=== PATIENT | male | born 1940 | race Caucasian/White ===

== ENCOUNTER → 2019-11-25 | Outpatient (CLI) | payer OTHER ==
[~2019-11-25] MED LIST: BUMETANIDE 1 MG1 M1 PO; BUPROPION HCL100 MG PO; EFFER-K 20 MEQ20 ME1 PO; HYDROCHLOROTHIA25 M2 PO; MELOXICAM15 MG PO; NEXIUM20 MG PO; NORVASC10 MG PO; TESTOSTERON100 MG/ML IM; ULORIC80 MG PO
--- NOTE | 2019-12-12 12:49 | PAINCON ---
[address] [address] PAIN MANAGEMENT CONSULTATION Name: HARSH STONE Room: [facility]#: [id number] Admission: 11/25/19 Attend Phys: Agueda Hall MD Discharge: Date of : 40 Report #: [id number] THIS REPORT FOR: //name// cc: Bijan Henry MD, Anthony MD ~ THIS REPORT FOR: //name// CC: Bijan Hall DATE OF SERVICE: 11/25/2019 CHIEF COMPLAINT: Low back pain. HISTORY: The patient is a 79-year-old gentleman who has been experiencing pain and discomfort in his back, particularly when he is bending over. He has had back pain for a number of years. At this juncture it is radiating down into his left leg. He has had injections in the past that were helpful. He is taking a nonsteroidal anti-inflammatory medication, meloxicam. Notes that the pain is worse when he is walking, standing and bending. It can improve with use of cold, rest and heat. Rates his pain as a 0 at its worst. It can often range as 3/10. ALLERGIES: No known drug allergies. CURRENT MEDICATIONS: Norvasc 10 mg one p.o., bumetanide 1 mg, bupropion SR 100 mg, Nexium 20 mg, Uloric 80 mg, hydrochlorothiazide 25 mg, meloxicam 15 mg, potassium 20 mEq, testosterone intramuscular 100. 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 PAST SURGICAL HISTORY: Bilateral total knee replacements. SOCIAL HISTORY: He is retired. REVIEW OF SYSTEMS: Questionnaire, wears glasses, hearing loss, constipation, awakens at night to urinate, difficulty walking, back pain, joint pain. LABORATORY DATA: No new laboratory values are available at the time of our interview. PAIN CLINIC ASSESSMENT AND PQRS: 1. History of osteoarthritis. The patient [place] [address] PAIN MANAGEMENT CONSULTATION Name: HARSH STONE JR Room: [facility]#: [id number] Admission: 11/25/19 Attend Phys: Agueda Hall MD Discharge: Date of : 40 Report #: [id number] He is not being treated for rheumatoid arthritis. 2. Height 5 feet 9 inches, weight 239 pounds, BMI 34. 3. Vital Signs: Blood pressure 140/83, heart rate 86, respiratory rate 16, room air saturation 96%, and temperature 97.8. 4. Pain intensity 06/23. 5. Fall history: The patient has not fallen in the last 3 months. 6. Blood thinner. The patient is not on a blood thinning medication. 7. Hypertension. The patient is being treated for hypertension. 8. Opioids greater than 6 weeks. The patient is not on an opioid regimen. 9. Risk assessment tool, low for opioid use. 10. Functional assessment tool reviewed. 11. Recreational drug use. The patient denies. 12. Tobacco: The patient denies. 13. Alcohol. The patient denies frequent use of alcoholic beverages. PHYSICAL EXAMINATION: GENERAL: The patient is a well-developed, well-nourished white male. Appears his stated age. He is alert and oriented x 3. His affect is appropriate. Speech is fluent. HEENT: Normocephalic, atraumatic. Extraocular eye muscles intact. Sclerae nonicteric. Mucous membranes are moist. The patient is wearing a mask. NECK: Without adenopathy or JVD. HEART: Regular rate. ABDOMEN: Nontender. EXTREMITIES: Upper extremity muscle strength judged to be 5-/5 for the major muscle groups in the upper extremity. The patient complains of pain and discomfort in the lower portion of his back and complains of pain that radiates down into the left leg. IMPRESSION: 1. Myofascial pain, low back area. 2. Lumbar radicular pain. RECOMMENDATIONS: We discussed treatment options with the patient. The patient will return to the Pain Clinic, at which time he would undergo an epidural steroid injection to help with the pain, which he is experiencing, which is radiating down to his lower extremities. We would like to thank you for letting us participate in his care. We hope he continues to improve. <ELECTRONICALLY SIGNED> By: Agueda Hall MD 12/12/19 1249 [id number]. Roge Hall MD /[facility]
== END ==
LOC: M.PC 08:26
PROVIDERS: ATTEND Anesthesiology Pain Medicine
DX: M54.16 Radiculopathy, lumbar region (principal); M79.18 Myalgia, other site; Z98.890 Other specified postprocedural states

== ENCOUNTER → 2019-12-09 | Outpatient (CLI) | payer OTHER ==
--- NOTE | 2019-12-18 15:10 | PAINCON ---
[address] [address] PAIN MANAGEMENT CONSULTATION Name: HARSH STONE Room: [facility]#: [id number] Admission: 12/09/19 Attend Phys: Agueda Hall MD Discharge: Date of : 40 Report #: [id number] THIS REPORT FOR: //name// cc: Bijan Henry MD, Anthony MD ~ THIS REPORT FOR: //name// CC: Bijan Hall DATE OF SERVICE: 12/09/2019 CHIEF COMPLAINT: Pain in the low back because of spinal stenosis. HISTORY: The patient is a 79-year-old gentleman who has been seen in the pain clinic because of lumbar radiculopathy. He suffers from spinal stenosis. He has undergone epidural steroid injection. His pain continues to be problematic. He notes that the pain becomes more problematic with standing. Walking can be more problematic. He has used heat, cold, and rest to help with the pain. He has been experiencing this pain for a number of years. Left leg is problematic. Notes that his pain is 10 at its worst. It oftentimes ranges between 3 and 10. ALLERGIES: No known drug allergies. CURRENT MEDICATIONS: Norvasc 10 mg 1 p.o. b.i.d., bumetanide 1 mg, bupropion SR 100 mg, Nexium 20 mg, Uloric 80 mg, hydrochlorothiazide 25 mg, meloxicam 15 mg, potassium 20 mEq, testosterone intramuscular 100. PAIN CLINIC ASSESSMENT AND PQRS: 1. Osteoarthritis. The patient has had bilateral knee replacements. He is not being treated for rheumatoid arthritis. 2. Height 5 feet 9 inches, weight 237 pounds, BMI is 35. 3. Vital Signs: Blood pressure 130/68, heart rate 89, respiratory rate 16, room air saturation 96.6%. 4. Pain intensity, 8/10. 5. Fall history. The patient has not fallen since we saw him last. 6. Blood thinner. The patient is not on a blood thinner. 7. Hypertension. The patient is being treated for hypertension. 8. Opioids greater than 6 weeks. The patient is not on an opioid regimen. 9. Risk assessment tool, low for opioid use. 10. Functional assessment tool. Reviewed. 11. Recreational drug use. The patient denies. 12. Tobacco. The patient denies use of tobacco. 13. Alcohol. The patient denies frequent use of alcoholic beverages. PHYSICAL EXAMINATION: [place] [address] PAIN MANAGEMENT CONSULTATION Name: STONEHARSH JR Room: [facility]#: [id number] Admission: 12/09/19 Attend Phys: Agueda Hall MD Discharge: Date of : 40 Report #: [id number] GENERAL: The patient is a well-developed, well-nourished, white male. Appears his stated age. He is alert and oriented x 3. His affect is appropriate. Speech is fluent. HEENT: Normocephalic, atraumatic. Extraocular eye muscles intact. Sclerae nonicteric. Mucous membranes are moist. The patient is wearing a mask. NECK: Without adenopathy or JVD. HEART: Regular rate. ABDOMEN: Nontender. EXTREMITIES: Upper extremity muscle strength judged to be 5-/5 for the major muscle groups in the upper extremity. The patient complains of pain and discomfort in lower portion of his back and has pain that radiates down into his left leg. IMPRESSION: 1. Low back pain with lumbar radicular discomfort secondary to spinal stenosis. 2. Myofascial pain, low back area. RECOMMENDATIONS: We discussed treatment options with the patient. Risks and benefits of an epidural steroid injection were discussed. Possible complications of the procedure, which could include infection, worsening of pain, no improvement in pain, nerve damage, bleeding, headache were discussed and the patient elects to proceed. PROCEDURE NOTE: The patient was taken to the procedure area. He was then assisted in getting on the examination table. His back was sterilely prepped in the L4-L5 area. There was no CSF, heme or paresthesia. Fluoroscopy using anterior, posterior as well as lateral viewing were implemented. After the area had been sterilely prepped and draped, the Betadine and allowed to dry. A 0.25% bupivacaine was infiltrated using a 25-gauge needle at the L4-L5 interspace. A 17-gauge Tuohy with loss of resistance technique was used to gain access to the epidural space. There was no CSF, heme or paresthesia. Total of 80 mg Depo-Medrol, 40 mg triamcinolone and 2 mL of 0.25% bupivacaine was injected. The patient tolerated the procedure well. There were no complications. He remained in the pain clinic for an appropriate amount of time. He will follow up in the future as needed. We would like to thank you for letting us participate in his care. We hope he continues to improve. <ELECTRONICALLY SIGNED> By: Agueda Hall MD 12/18/19 1510 [id number]. Roge Hlal MD /[facility]
== END | disposition home or self-care (01) ==
LOC: M.PC 11:50
PROVIDERS: ATTEND Anesthesiology Pain Medicine
DX: M54.5 Low back pain (principal); M48.061 Spinal stenosis, lumbar region without neurogenic claudication; I10 Essential (primary) hypertension; Z79.899 Other long term (current) drug therapy

== ENCOUNTER → 2020-01-06 | Outpatient (CLI) | payer OTHER ==
--- NOTE | ~2020-01-06 | PAINCON ---
[address] [address] PAIN MANAGEMENT CONSULTATION Name: HARSH STONE Room: [facility]#: [id number] Admission: 01/06/20 Attend Phys: Agueda Hall MD Discharge: Date of : 40 Report #: [id number] THIS REPORT FOR: //name// cc: Bijan Henry MD, Anthony MD THIS REPORT FOR: //name// CC: Bijan Hall DATE OF SERVICE: 01/06/2020 CHIEF COMPLAINT: Low back pain. HISTORY: The patient is a 79-year-old gentleman who has been seen in the Pain Clinic in the past because of lumbar radicular pain. He received good relief from the first epidural steroid injection. He rates his pain between 1 and 10 with activity and a 10/10 with activity and bending. He would like to proceed with an injection today. ALLERGIES: No known drug allergies. CURRENT MEDICATIONS: Norvasc 10 mg 1 p.o. b.i.d., bumetanide 1 mg, bupropion SR 100 mg, Nexium 20 mg, Uloric 80 mg, hydrochlorothiazide 25 mg, meloxicam 15 mg, potassium 10 mEq, and testosterone intramuscular 100. PAIN CLINIC ASSESSMENT/PQRS: 1. The patient has osteoarthritis. The patient has spinal stenosis. He is not being treated for rheumatoid arthritis. 2. Height 5 feet 9 inches, weight 235 pounds, BMI is 34.9. 3. Vital Signs: Blood pressure 152/87, heart rate 81, respiratory rate 16, room air saturation 96%, temperature 97.3. 4. Pain intensity 10/10 with activity and bending. 5. Fall history: The patient has not fallen in the last month. 6. Blood thinner. The patient is not on a blood thinning medication. 7. Hypertension. The patient is being treated for hypertension. 8. Opioids greater than 6 weeks. The patient received medication from one source. 9. Risk assessment tool, low for opioid use. 10. Functional assessment tool reviewed. 11. Recreational drug use. The patient denies. 12. Tobacco: The patient denies use of tobacco. 315. Alcohol. The patient denies frequent use of alcoholic beverages. PHYSICAL EXAMINATION: [address] [place] [address] PAIN MANAGEMENT CONSULTATION Name: HARSH STONE JR Room: [facility]#: [id number] Admission: 01/06/20 Attend Phys: Agueda Hall MD Discharge: Date of : 40 Report #: [id number] GENERAL: The patient is a well-developed, well-nourished white male. Appears his stated age. He is alert and oriented x 3. His affect is appropriate. Speech is fluent. HEENT: Normocephalic, atraumatic. Extraocular eye muscles intact. Sclerae nonicteric. Mucous membranes are moist. The patient is wearing a facial covering. NECK: Without adenopathy or JVD. HEART: Regular rate. ABDOMEN: Nontender. EXTREMITIES: Upper extremity muscle strength is judged to be 5/5 for the major muscle groups in the upper extremity. The patient complains of pain and discomfort in lower portion of his back and has pain that radiates down into his left leg in the lateral side and down into the calf. He does complain of foot drop. He is unable to move his toes. He is able to move a little bit of his great toe and minimal movement in the index toe. IMPRESSION: 1. Low back pain with lumbar radicular pain secondary to spinal stenosis. 2. History of knee pain with continued foot drop on the left. 3. Myofascial pain, low back area. RECOMMENDATIONS: We discussed treatment options with the patient. Risks and benefits of an epidural steroid injection were again discussed. They include but are not limited to infection, worsening of pain, no improvement in pain, nerve damage and bleeding. The patient elects to proceed. PROCEDURE NOTE: The patient was taken to the procedure area. He was then assisted in getting on the examination table. His back was sterilely prepped with a Betadine solution. It was allowed to dry. At the L5-S1 area, 0.25% bupivacaine was infiltrated into the L5-S1 zone. A 25-gauge needle was then used to anesthetize it. A 17-gauge Tuohy with loss of resistance technique was used to gain access to the epidural space. There was no CSF, heme or paresthesia. Total of 80 mg Depo-Medrol, 40 mg triamcinolone and 2 mL of 0.25% bupivacaine was injected. The patient tolerated the procedure well. He remained in the Pain Clinic for an appropriate amount of time. We have discussed that the foot drop is more likely to be involved at the level of the knee. An injection in the low back area is probably not going to change that much. The patient has had surgery about a year and some months ago. He still is wearing a plastic item to help with his foot drop. [address] [address] PAIN MANAGEMENT CONSULTATION Name: HARSH STONE Room: [facility] JEFF Vizcaino#: [id number] Admission: 01/06/20 Attend Phys: Agueda Hall MD Discharge: Date of : 40 Report #: [id number] We would like to thank you for letting us participate in his care. We hope he continues to improve. By: [id number] [id number]. Roge Hall MD /nt
== END | disposition home or self-care (01) ==
LOC: M.PC 10:50
PROVIDERS: ATTEND Anesthesiology Pain Medicine
DX: M54.5 Low back pain (principal); M54.16 Radiculopathy, lumbar region; M19.90 Unspecified osteoarthritis, unspecified site; Z79.899 Other long term (current) drug therapy

== ENCOUNTER 2020-01-26 17:14 | Observation (INO) | payer OTHER ==
[~2020-01-26] VITALS: Ht 177.8 cm; Wt 103.0 kg
[2020-01-26 17:18] VITALS: BP 147/84
[2020-01-26 20:28] LABS: HEMATOCRIT 51.4 % (42.0-52.0); HEMOGLOBIN 16.8 gm/dL (14.0-18.0); MCH 26.6 pg (26.0-34.0); MCHC 32.8 g/dL (28.0-37.0); MPV 7.8 fl. (7.2-11.1); NUCLEATED RBCS 0 /100WBC; PLATELET COUNT* 246 thou/uL (150-400); RBC 6.34 mil/uL (4.50-6.00); RDW-CV 16.5 % (10.5-14.5); WBC 16.4 thou/uL (4.0-11.0)
[2020-01-26 20:36] LABS: CALCIUM 8.8 mg/dL (8.5-10.1); CREATININE 1.9 mg/dL (0.6-1.3); POTASSIUM 3.4 mmol/L (3.5-5.1); URINE BILIRUBIN NEGATIVE (Negative); URINE BLOOD NEGATIVE (Negative); URINE CLARITY CLEAR; URINE COLOR YELLOW; URINE GLUCOSE-RANDOM NEGATIVE (Negative); URINE KETONES TRACE (Negative); URINE LEUKOCYTES NEGATIVE (Negative); URINE NITRITE NEGATIVE (Negative); URINE PROTEIN NEGATIVE (Negative); URINE UROBILINOGEN 0.2 E.U./dl (0.2-1.0)
[2020-01-26 20:41] LABS: ALBUMIN 3.9 g/dL (3.4-5.0); TOTAL PROTEIN 7.4 g/dL (6.4-8.2)
[2020-01-26 21:04] LABS: ABSOLUTE EOSINOPHILS 0.2 thou/uL (0.0-0.7); ABSOLUTE LYMPHOCYTES 0.3 thou/uL (0.8-5.3); ABSOLUTE MONOCYTES 0.8 thou/uL (0.0-1.2); ABSOLUTE NEUTROPHILS 15.1 thou/uL (1.6-8.1); PLATELET ESTIMATE ADEQUATE
[2020-01-27 02:00] VITALS: BP 126/68
[2020-01-27 06:00] VITALS: BP 126/78
[2020-01-27] MEDS ORDERED: MIRALAX17 GM PO (08:45)
[2020-01-27] MEDS ORDERED: SENNA PLUS TAB1 EACH PO (08:45)
[2020-01-27 09:05] LABS: HEMATOCRIT 47.8 % (42.0-52.0); HEMOGLOBIN 15.5 gm/dL (14.0-18.0); MCH 26.2 pg (26.0-34.0); MCHC 32.4 g/dL (28.0-37.0); MCV 80.8 fL (80.0-100.0); MPV 7.5 fl. (7.2-11.1); RBC 5.91 mil/uL (4.50-6.00); RDW-CV 16.4 % (10.5-14.5)
[2020-01-27 09:22] LABS: CALCIUM 7.9 mg/dL (8.5-10.1); CREATININE 1.6 mg/dL (0.6-1.3); POTASSIUM 3.4 mmol/L (3.5-5.1)
[2020-01-27 09:25] LABS: MAGNESIUM 1.9 mg/dL (1.8-2.4)
[2020-01-27 10:00] VITALS: BP 118/44
[2020-01-27 11:00] VITALS: BP 126/78
--- NOTE | 2020-01-27 15:53 | EKG ---
[place] [address] ELECTROCARDIOGRAM REPORT Name: HARSH STONE JR Room: [address]#: [id number] Admission: 01/26/20 Attend Phys: Praveen Casey, Discharge: 01/27/20 Date of : 40 Date of Service: 01/26/202024 Report #: [id number] THIS REPORT FOR: //name// [facility] ED Test Date: 2020-01-26 Test Time: 20:25:48 Pat Name: HARSH STONE Department: Room: [facility] Gender: M Diesel Mechanic Helper: HUDSON : 1940 Requested By: Suzette Miner Order Number: [id number] MD: Harsh Contreras Measurements Intervals [place] Rate: 92 P: 47 [place]: 147 QRS: -15 QRSD: 95 T: 11 QT: 360 QTc: 446 Interpretive Statements Sinus rhythm Atrial premature complex Inferior infarct, old Anterior infarct, old Compared to ECG 09/24/2008 15:49:55 Atrial premature complex(es) now present Myocardial infarct finding now present Electronically Signed On 01-27-2020 15:53:04 CDT by Harsh Contreras [email or web address] <ELECTRONICALLY SIGNED> By: Harsh Contreras MD, FACC 01/27/20 1553 24 24 Harsh Contreras MD, FACC /EPI
== END 2020-01-27 11:18 | disposition home or self-care (01) ==
LOC: M.ERS 17:14 → M.TBA-ER 21:50
PROVIDERS: Physician Assistant; ADMIT Internal Medicine; ATTEND Internal Medicine
DX: K56.41 Fecal impaction (principal); R33.9 Retention of urine, unspecified; K59.00 Constipation, unspecified; F32.9 Major depressive disorder, single episode, unspecified; E87.6 Hypokalemia; D72.829 Elevated white blood cell count, unspecified; D75.1 Secondary polycythemia; N18.30 Chronic kidney disease, stage 3 unspecified; Z79.899 Other long term (current) drug therapy; Z87.891 Personal history of nicotine dependence; Z20.828 Contact with and (suspected) exposure to other viral communicable diseases

== ENCOUNTER → 2020-02-03 | Outpatient (CLI) | payer OTHER ==
[~2020-02-03] MED LIST changes: +MIRALAX17 GM PO; +SENNA PLUS TAB1 EACH PO
--- NOTE | ~2020-02-03 | PAINCON ---
[address] [address] PAIN MANAGEMENT CONSULTATION Name: HARSH STONE Room: [facility]#: [id number] Admission: 02/03/20 Attend Phys: Agueda Hall MD Discharge: Date of : 40 Report #: [id number] THIS REPORT FOR: //name// cc: Bijan Henry MD, Anthony MD THIS REPORT FOR: //name// CC: Bijan Hall DATE OF SERVICE: 02/03/2020 CHIEF COMPLAINT: Low back pain ____. HISTORY: The patient is a 79-year-old gentleman who has been followed in the Pain Clinic because of lumbar radiculopathy. He has undergone epidural steroid injections. He finds that his pain has improved. Still notes some increased pain and discomfort with certain activities, such as bending. At this juncture, he describes the pain as 6-7 when bending over rather than 10/10 when he is bending over. He has had no complications from the previous epidural injections. At this point, he feels that another injection would be beneficial and would like to proceed. ALLERGIES: No known drug allergies. CURRENT MEDICATIONS: Norvasc 10 mg 1 p.o. b.i.d., bumetanide 1 mg, bupropion SR 100 mg, Nexium 20 mg, Uloric 80 mg, hydrochlorothiazide 25 mg, meloxicam 15 mg, potassium 10 mEq, testosterone intramuscular PAIN CLINIC ASSESSMENT/PQRS: 1. The patient has a history of spinal stenosis. He is not being treated for rheumatoid arthritis. 2. Height 5 feet 9 inches, weight 233 pounds, BMI is 33. 3. Vital signs: Blood pressure 140/70, heart rate 65, respiratory rate 18, room air saturation 98%, temperature was 98.0. 4. Pain score rises from 0-6 with bending and certain movements. 5. Fall history: The patient has not fallen in the last 3 months. 6. Blood thinner. The patient is not on a blood thinning medication. 7. Hypertension. The patient is being treated for hypertension. 8. Opioids greater than 6 weeks. The patient received medication from one source. 9. Risk assessment tool, low for opioid use. 10. Functional assessment tool reviewed. 11. Recreational drug use. The patient denies. 12. Tobacco: [place] [address] PAIN MANAGEMENT CONSULTATION Name: HARSH STONE JR Room: [facility]#: [id number] Admission: 02/03/20 Attend Phys: Agueda Hall MD Discharge: Date of : 40 Report #: [id number] 13. Alcohol. The patient denies frequent use of alcoholic beverages. PHYSICAL EXAMINATION: GENERAL: The patient is a well-developed, well-nourished white male. Appears his stated age. He is alert and oriented x 3. His affect is appropriate. Speech is fluent. HEENT: Normocephalic, atraumatic. Extraocular eye muscles intact. Sclerae nonicteric. Mucous membranes are moist. The patient is wearing glasses. Has a facial covering in place. NECK: Without adenopathy or JVD. HEART: Regular rate. ABDOMEN: Nontender. EXTREMITIES: Upper extremity muscle strength is judged to be 5-/5 for the major muscle groups in the upper extremity. The patient has some pain and discomfort in the lower back with certain movements of leaning forward and notes that he has some pain that radiates down the lateral portion of his left side involving the calf. The patient still does complain of foot drop. He is unable to move, dorsiflex his toes. IMPRESSION: 1. Low back pain and lumbar radicular pain secondary to spinal stenosis. 2. History of knee pain with continued foot drop on the left. 3. Myofascial pain in the low back area. RECOMMENDATIONS: We discussed treatment options with the patient. Risks and benefits of an epidural steroid injection were discussed. Possible complications of the procedure were reviewed. They include infection, muscle soreness, bleeding, nerve damage, spinal headache. We discussed the problems with COVID-19 pandemic. Should the patient become infected, he may have a more difficult time with the infection. He elects to proceed. PROCEDURE NOTE: The patient was taken to the procedure area. He was then assisted in getting on examination table. A pillow was placed under the abdomen to bolster and improve positioning. A 17-gauge Tuohy with loss of resistance technique was used to gain access to the epidural space. The patient today complained of pain that was more problematic in the L4-L5 dermatomal distribution. We therefore proceeded with an epidural steroid injection at the L4-L5 area. There was no CSF, heme or paresthesia. The patient shall return to the Pain Clinic as needed in the future. He states that he is using meloxicam 15 mg daily. We reminded him that it is an aspirin type product and could cause some GI problems. He will monitor for GI problems. He continues [place] [address] PAIN MANAGEMENT CONSULTATION Name: HARSH STONE JR Room: [facility]#: [id number] Admission: 02/03/20 Attend Phys: Agueda Hall MD Discharge: Date of : 40 Report #: [id number] We would like to thank you for letting us participate in his care. By: 1447 1550N. Roge Hall MD /nt
== END | disposition home or self-care (01) ==
LOC: M.PC 09:18
PROVIDERS: ATTEND Anesthesiology Pain Medicine
DX: M54.5 Low back pain (principal); M48.061 Spinal stenosis, lumbar region without neurogenic claudication; Z79.899 Other long term (current) drug therapy; Z87.440 Personal history of urinary (tract) infections; Z88.8 Allergy status to other drugs, medicaments and biological substances